=== PATIENT | male | born 1950 | race Caucasian/White ===

== ENCOUNTER → 2025-01-19 16:40 | Outpatient (REF) | payer MEDICARE, SELFPAY | LOC: RAD 16:40 | PROVIDERS: ATTENDING PHYSICIAN Family Medicine | DX: M54.6 Pain in thoracic spine (principal) | CPT/HCPCS: 72072 ==

== ENCOUNTER → 2025-02-06 18:44 | Outpatient (REF) | payer MEDICARE, SELFPAY | LOC: PAVMRI 18:44 | PROVIDERS: ATTENDING PHYSICIAN Family Medicine | DX: M54.6 Pain in thoracic spine (principal) | CPT/HCPCS: 72146 ==